=== PATIENT | male | born 1965 | race Caucasian/White ===

== ENCOUNTER 2022-09-21 12:16 | Inpatient (IN) | payer OTHER ==
[~2022-09-21] VITALS: Ht 172.7 cm; Wt 133.8 kg
[2022-09-21 12:18] VITALS: BP 112/79
--- NOTE | 2022-09-21 12:29 | NUR ---
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 ALSO COMPLAINS SWELLING AND REDNESS TO RIGHT EYE STARTED 3X DAYS AGO. PATIENT STATES HE SMOKES 1 PACK A DAY. DENIES ANY PMH.
--- NOTE | 2022-09-21 12:29 | NUR ---
ambulated patient to bed 10
[2022-09-21] MEDS ORDERED: KETOROLAC 30 MG/ML VIAL IVP ONE (12:55)
[2022-09-21] MEDS ORDERED: ALBUTEROL SULFATE/IPRATROPIU 3 ML SOL IH ONE (13:25)
[2022-09-21 13:52] LABS: BASOPHILS % (AUTO) 0.4 % (0.0-2.0); EOSINOPHILS # (AUTO) 0.4 K/uL (0-0.4); EOSINOPHILS % (AUTO) 3.3 % (0.0-4.0); HEMATOCRIT 43.9 % (36-52); HEMOGLOBIN 15.2 g/dL (12.0-18.0); LYMPHOCYTES # (AUTO) 2.2 K/uL (2.0-11.5); LYMPHOCYTES % (AUTO) 20.2 % (20.5-51.1); MEAN CORPUSCULAR HEMOGLOBIN 30 pg (27-31); MEAN CORPUSCULAR HGB CONC 35 g/dL (33-37); MEAN CORPUSCULAR VOLUME 88.1 fL (80-94); MONOCYTES # (AUTO) 1.4 K/uL (0.8-1.0); NEUTROPHILS # (AUTO) 6.8 K/uL (1.8-7.7); NEUTROPHILS % (AUTO) 63.1 % (42.2-75.2); PLATELET COUNT (AUTO) 227 K/uL (140-450); RED BLOOD CELL COUNT(AUTO) 4.98 MIL/uL (4.20-6.10); RED CELL DISTRIBUTION WIDTH 13.9 % (11.6-13.7); WHITE BLOOD COUNT (AUTO) 10.8 K/uL (4.8-10.8)
[2022-09-21 14:20] LABS: ALBUMIN 3.3 g/dL (3.4-5.0); ANION GAP 8.8 (8-16); CARBON DIOXIDE 31.5 mmol/L (21-32); CREATININE 0.9 mg/dL (0.6-1.3); POTASSIUM 4.3 mmol/L (3.5-5.1); TOTAL BILIRUBIN 1.7 mg/dL (0.0-1.0)
--- NOTE | 2022-09-21 15:10 | NUR ---
pt asleep, hard to rouse, "i feel very tired" alert x 4. Dr Carcamo aware
[2022-09-21] MEDS ORDERED: ONDANSETRON 4 MG/2 ML VIAL IVP PRN (15:40)
[2022-09-21] MEDS ORDERED: ACETAMINOPHEN 325 MG TAB PO PRN (15:40)
[2022-09-21] MEDS ORDERED: MAGNESIUM OXIDE 400 MG TAB PO PRN (15:40)
[2022-09-21] MEDS ORDERED: POTASSIUM CHLORIDE 10 MEQ TABER PO PRN (15:40)
[2022-09-21] MEDS ORDERED: HYDROcodone/APAP 5/325 MG 1 TAB TAB PO PRN (15:40)
[2022-09-21] MEDS ORDERED: MORPHINE SULFATE 2 MG/ML SYR IVP PRN (15:40)
--- NOTE | 2022-09-21 15:44 | NUR ---
tolerated supine position, NM tech aware, will be ready for VQ scan for pt after 3 hrs
[2022-09-21 16:00] VITALS: BP 130/79
--- NOTE | 2022-09-21 16:35 | NUR ---
Patient will be admitted to care of MD PURCELL. Admited to TELE. Will go to room 124A. Belongings list completed. Report to HUDSON NORWOOD.
--- NOTE | 2022-09-21 16:43 | NUR ---
RECEIVE PATIENT FROM ER OBSERVATION STATUS FOR CHEST PAIN, HYPOXIC, RESPIRATORY FAILURE D/O SOB W/ COUGH X 1 WEEK. PATIENT HAS NO SIGNIFICANT MEDICAL HX EXCEPT MAYBE SLEEPING APNEA PER FAMILY. PATIENT ALLERGY TO IODINE, FULL CODE, AMBULATORY, ALERT X 4, ON 5 LITER VIA MASK. PIV NOTED AT R. AC 20G, AND L. FOREARM 18G SALINE LOCK. VITAL WITHIN PATIENT'S BASELINE (T-P-R: 98.0-101-18, BP: 130/79, O2 SAT: 93% ON 5 LITER). VQ SCAN ENTRY LEVEL FINANCE PATIENT SHORTLY AFTER PATIENT ARRIVE UNIT. WILL CONTINUE TO MONITOR Addendum: 09/21/22 at 1935 by Юлия Francis RN ENDORSE PATIENT IN STABLE CONDITION TO PM SHIFT NURSE AFTER EXPLAIN TO PATIENT'S SIGNIFICANT OTHER THAT PATIENT WILL STAY IN HOSPITAL FOR BREATH TREATMENT OBSERVATION STATUS WHILE TREAT FOR FLUID OVERLOAD(?) WITH LASIX. PATIENT CURRENTLY ON 5 LITER VIA MASK
--- NOTE | 2022-09-21 19:30 | NUR ---
RECEIVED PT FROM AM NURSE FOR CONTINUITY OF CARE. PT IS STABLE
[2022-09-21 20:00] VITALS: BP 139/87
[2022-09-21] MEDS: ALBUTEROL SULFATE/IPRATROPIU 3 ML SOL IH SCH (22:21)
[2022-09-22] VITALS: BP 142/95
--- NOTE | 2022-09-22 01:00 | NUR ---
PATIENT ASLEEP,NO DISTRESS NOTED
[2022-09-22 04:00] VITALS: BP 122/80
[2022-09-22 06:36] LABS: ANION GAP 7.9 (8-16); CARBON DIOXIDE 33.5 mmol/L (21-32); CREATININE 0.7 mg/dL (0.6-1.3); POTASSIUM 4.4 mmol/L (3.5-5.1)
[2022-09-22 06:58] LABS: BASOPHILS % (AUTO) 0.4 % (0.0-2.0); EOSINOPHILS # (AUTO) 0.3 K/uL (0-0.4); EOSINOPHILS % (AUTO) 2.6 % (0.0-4.0); HEMOGLOBIN 15.8 g/dL (12.0-18.0); LYMPHOCYTES # (AUTO) 1.7 K/uL (2.0-11.5); LYMPHOCYTES % (AUTO) 15.1 % (20.5-51.1); MEAN CORPUSCULAR HEMOGLOBIN 30 pg (27-31); MEAN CORPUSCULAR HGB CONC 34 g/dL (33-37); MEAN CORPUSCULAR VOLUME 88.1 fL (80-94); MONOCYTES % (AUTO) 8.8 % (1.7-9.3); NEUTROPHILS # (AUTO) 8.2 K/uL (1.8-7.7); NEUTROPHILS % (AUTO) 73.1 % (42.2-75.2); PLATELET COUNT (AUTO) 224 K/uL (140-450); RED BLOOD CELL COUNT(AUTO) 5.23 MIL/uL (4.20-6.10); RED CELL DISTRIBUTION WIDTH 13.4 % (11.6-13.7); WHITE BLOOD COUNT (AUTO) 11.2 K/uL (4.8-10.8)
[2022-09-22] MEDS: ALBUTEROL SULFATE/IPRATROPIU 3 ML SOL IH SCH ×2 (07:17→23:28)
--- NOTE | 2022-09-22 07:30 | NUR ---
RECEIVED REPORT FROM DATABASE ADMINISTRATOR NURSE, POC DISCUSSED, PT CURRENTLY RESTING WITH CHEST RISING AND FALLING, NO ACUTE S/S OF DISTRESS, ALL SAFETY MEASURES IN PLACE, CALL LIGHT WITHIN REACH.
[2022-09-22 08:00] VITALS: BP 137/70
[2022-09-22] MEDS: DOCUSATE SODIUM 100 MG GELCAP PO SCH (09:00)
--- NOTE | 2022-09-22 09:09 | NUR ---
DC PLANNIN YRS OLD MALE PATIENT WAS ADMITTED FROM HOME WITH A DX OF CHEST PAIN , HYPOXIC RESP FAILURE. PATIENT HAS NO MEDICAL HISTORY.CXR AND CT CHEST NORMAL NO PE RAPID COVID TEST NEGATIVE. ADMINISTERED LASIX IV AND CONTINUED HOME MEDS. AWAITING FOR CONSULT ORDER AND DC PLAN TO RETURN HOME WHEN STABLE CM TO FOLLOW Addendum: 09/23/22 at 1358 by DANIA WEEMS CM RECEIVED ORDER FOR PATIENT TO RECEIVE A HOME BIPAP MACHINE. FAXED TO [facility]. Addendum: 09/23/22 at 1447 by DANIA WEEMS CM [facility] WILL BE DROPPING OF BIPAP MACHINE FROM [phone]. NURSE NOTIFIED. Addendum: 09/23/22 at 1628 by DANIA WEEMS CM [facility]#[id number] GIVEN BY MELISSA FROM [facility] FOR [facility].
--- NOTE | 2022-09-22 09:14 | NUR ---
PATIENT HAS BEEN SCREENED AND CATEGORIZED MODERATE NUTRITION RISK. PATIENT WILL BE SEEN WITHIN 3-5 DAYS OF ADMISSION. / REVIEWED BY SERGEI MAYO RD
[2022-09-22] MEDS: FUROSEMIDE 20 MG/2 ML VIAL IVP SCH (09:26)
--- NOTE | 2022-09-22 10:30 | NUR ---
PT STARTED ON BIPAP FOR INCREASED WOB AT THIS TIME. DR. PURCELL NOTIFIED.
--- NOTE | 2022-09-22 10:32 | NUR ---
DOTTIE DODD CALLED IN TO OBTAIN STATUS ON PT. GAVE HER AN UPDATE AND SHE HAD NO ADDITIONAL QUESTIONS OR CONCERNS.
[2022-09-22 12:00] VITALS: BP 118/67
[2022-09-22 16:00] VITALS: BP 111/70
--- NOTE | 2022-09-22 17:42 | NUR ---
PT IS RESTING WITH CHEST RISING AND FALLING. HE IS IN STABLE CONDITION WITH BIPAP. WHEN PT TAKES OFF BIPAP TO USE THE RESTROOM HIS O2 GOES DOWN TO THE 80'S. WE IMMEDIATELY PUT BACK ON BIPAP ONCE HE IS DONE WITH RESTROOM AND O2 GOES BACK UP TO MID 90'S.
--- NOTE | 2022-09-22 19:25 | NUR ---
RECEIVED PT FROM AM NURSE FOR CONTINUITY OF CARE. PT IS STABLE
[2022-09-22 20:00] VITALS: BP 121/73
[2022-09-23] VITALS: BP 128/83
--- NOTE | 2022-09-23 02:00 | NUR ---
PATIENT SLEEPING COMFORTABLY WITH BIPAP ON. NO DISTRESS NOTED
[2022-09-23 04:00] VITALS: BP 125/80
[2022-09-23 06:37] LABS: BASOPHILS % (AUTO) 0.4 % (0.0-2.0); EOSINOPHILS # (AUTO) 0.3 K/uL (0-0.4); EOSINOPHILS % (AUTO) 2.9 % (0.0-4.0); HEMATOCRIT 44.2 % (36-52); HEMOGLOBIN 15.3 g/dL (12.0-18.0); LYMPHOCYTES # (AUTO) 1.9 K/uL (2.0-11.5); LYMPHOCYTES % (AUTO) 18.2 % (20.5-51.1); MEAN CORPUSCULAR HEMOGLOBIN 30 pg (27-31); MEAN CORPUSCULAR HGB CONC 35 g/dL (33-37); MEAN CORPUSCULAR VOLUME 87.8 fL (80-94); NEUTROPHILS # (AUTO) 7.1 K/uL (1.8-7.7); NEUTROPHILS % (AUTO) 68.5 % (42.2-75.2); PLATELET COUNT (AUTO) 232 K/uL (140-450); RED BLOOD CELL COUNT(AUTO) 5.03 MIL/uL (4.20-6.10); RED CELL DISTRIBUTION WIDTH 13.6 % (11.6-13.7); WHITE BLOOD COUNT (AUTO) 10.4 K/uL (4.8-10.8)
--- NOTE | 2022-09-23 07:15 | NUR ---
RECEIVED BEDSIDE REPORT FROM NIGHT NURSE LON FOR CONTINUITY OF CARE. INITIAL ASSESSMENT DONE. ALERT AND ORIENTED X 4. RESP. EVEN AND UNLABORED. ON 15L/OXYMIZER. SATTING 88%-90%. PER LON PT REFUSED BIPAP, CALLED RT MADE AWARE. IV SITE INTACT, ON SALINE LOCK. NOT IN ANY DISTRESS NOTED. CALL LIGHT KEPT WITHIN REACH. WILL CONTINUE TO MONITOR.
--- NOTE | 2022-09-23 07:21 | NUR ---
ENDORSED PT TO AM NURSE FOR CONTINUITY OF CARE. PT IS STABLE
[2022-09-23 08:00] VITALS: BP 105/54
[2022-09-23] MEDS: DOCUSATE SODIUM 100 MG GELCAP PO SCH (08:09)
--- NOTE | 2022-09-23 08:09 | NUR ---
SCHEDULED MEDICATIONS GIVEN. TOLERATED WELL.
--- NOTE | 2022-09-23 08:10 | NUR ---
PRN MAG OXIDE PO WAS GIVEN. FOR MAGNESIUM 1.7. TOLERATED WELL.
[2022-09-23] MEDS: FUROSEMIDE 20 MG/2 ML VIAL IVP SCH (09:00)
[2022-09-23 09:34] LABS: CARBON DIOXIDE 34.2 mmol/L (21-32); CREATININE 0.8 mg/dL (0.6-1.3); POTASSIUM 4.2 mmol/L (3.5-5.1)
--- NOTE | 2022-09-23 10:19 | NUR ---
LASIX IVP GIVEN BY DON NORWOOD. TOLERATED WELL.
[2022-09-23] MEDS: ALBUTEROL SULFATE/IPRATROPIU 3 ML SOL IH SCH ×3 (11:06→19:15)
[2022-09-23 12:00] VITALS: BP 124/68
--- NOTE | 2022-09-23 12:05 | NUR ---
SEEN BY DR. PURCELL.
--- NOTE | 2022-09-23 14:13 | NUR ---
09/23/22 RD INITIAL ASSESSMENT COMPLETED PLEASE REFER TO NUTRITION ASSESSMENT UNDER CARE ACTIVITY FOR ESTIMATED NUTRITIONAL NEEDS. 1. CONTINUE CARDIAC DIET TOLERATED 2. PROVIDED NUTRITION EDUCATION AND HANDOUTS ON GENERAL HEALTHY EATING HABITS 3. RD TO FOLLOW-UP 7 DAYS, LOW RISK REVIEWED BY SERGEI MAYO RD
--- NOTE | 2022-09-23 15:15 | NUR ---
CHECKED ON PT LET HIM KNOW IT WAS RAJESH FOR HIS TX. HE STATED WE WANTS TO SLEEP AND HE DIDNT WANT ONE AT THIS TIME. EXPLAINED TO PT IF HE GETS SOB TO CALL AND WE WILL COME CHECK ON HIM. WILL CONTINUE TO MONITOR. NO DISTRESS NOTED. PT WAS TITRATED TO 10L OXYMIZER. SPO2 96% HR 101
--- NOTE | 2022-09-23 15:17 | NUR ---
DC PLANNING ASSESSMENT COMPLETE PLEASE REFER TO ASSESSMENT FOR ADDITIONAL DETAILS PT REPORTS DC PLAN TO RETURN HOME WITH GF PROVIDING TRANSPORTATION, WHEN MEDICALLY CLEARED BY PHYSICIAN. PT CURRENTLY WAITING ON HOME BIPAP MACHINE, DC SEGMENTAL PAVING SUPERVISOR CURRENTLY WORKING ON OBTAINING BIPAP MACHINE FOR PT WITH [employer] AND [employer]. Addendum: 09/23/22 at 1518 by Enrico Ocampo SS Amended: Links added.
[2022-09-23 16:00] VITALS: BP 106/68
--- NOTE | 2022-09-23 16:10 | NUR ---
RECEIVED HOME BIPAP.
--- NOTE | 2022-09-23 19:30 | NUR ---
BEDSIDE REPORT GIVEN TO NIGHT NURSE JESSE. REMAINS STABLE.
[2022-09-23 20:00] VITALS: BP 121/60
--- NOTE | 2022-09-23 22:04 | NUR ---
V FIB ON TELE MONITOR - ASSESS THE PT - DENIES PAIN - HE SAID SOMETIMES WHILE HE IS SLEEPING HE JUST AWAKEN UP BECAUSE OF SHORTNESS OF BREATH - WILL INFOPRM RT TO JEANETTE PT ON BI PAP . Addendum: 09/23/22 at 2335 by Zara Ledbetter RN THE ABOVE NURSE'S NOTE IS A TIME ERROR ENTRY , INSTEAD OF 2303 - [id number] . Addendum: 09/24/22 at 0017 by Zara Ledbetter RN at 2304 - informed dr. mauro pt had episode of v fib on tele monitor - per dr. zunilda hopkins pt on bi pap while sleeping - will carry out .
--- NOTE | 2022-09-23 23:06 | NUR ---
called to bedside. patient spo2 monitor showed 88%. patient had clear breath sounds, no work of breathing, no cyanosis. adjusted pulse ox probe and spo2 quickly returned to 94%. changed out patients pulse ox preventively and observed patient for several minutes that spo2 maintained at 94% with no work of breathing. will continue to monitor.
--- NOTE | 2022-09-23 23:20 | NUR ---
INFORM RT HOOK PT ON BI PAP WHILE PT SLEEPING - RT VERBALIZES UNDERSTANDING .
--- NOTE | 2022-09-23 23:44 | NUR ---
PT PLACED ON BIPAP 04/06 65%/. PT TOLERATING WELL. VITALS: 94% 113H. WILL MONITOR THROUGHOUT REMAINDER OF SHIFT.
[2022-09-24] VITALS: BP 110/62
--- NOTE | 2022-09-24 02:51 | NUR ---
RN CALLED STATING PATIENT DID NOT WANT TO BE ON BIPAP. TOOK BIPAP OFF PATIENT AND PLACED ON OXIMYZER @15L. PATIENT VITALS CURRENTLY STABLE 94% 113h. NO S/S OF RD NOTED. PT WENT BACK TO SLEEP.
[2022-09-24 04:00] VITALS: BP 110/62
--- NOTE | 2022-09-24 04:00 | NUR ---
SLEEPING , EASILY AROUSABLE , O2 SAT WNL , NO COMPLAIN MADE , WILL CONT. TO MONITOR
[2022-09-24 05:51] LABS: BASOPHILS % (AUTO) 0.3 % (0.0-2.0); EOSINOPHILS # (AUTO) 0.4 K/uL (0-0.4); EOSINOPHILS % (AUTO) 3.5 % (0.0-4.0); HEMATOCRIT 45.2 % (36-52); HEMOGLOBIN 15.7 g/dL (12.0-18.0); LYMPHOCYTES # (AUTO) 1.5 K/uL (2.0-11.5); LYMPHOCYTES % (AUTO) 14.6 % (20.5-51.1); MEAN CORPUSCULAR HEMOGLOBIN 30 pg (27-31); MEAN CORPUSCULAR HGB CONC 35 g/dL (33-37); MEAN CORPUSCULAR VOLUME 87.7 fL (80-94); MONOCYTES % (AUTO) 10.1 % (1.7-9.3); NEUTROPHILS # (AUTO) 7.3 K/uL (1.8-7.7); NEUTROPHILS % (AUTO) 71.5 % (42.2-75.2); PLATELET COUNT (AUTO) 213 K/uL (140-450); RED BLOOD CELL COUNT(AUTO) 5.16 MIL/uL (4.20-6.10); RED CELL DISTRIBUTION WIDTH 13.3 % (11.6-13.7); WHITE BLOOD COUNT (AUTO) 10.3 K/uL (4.8-10.8)
[2022-09-24 05:56] LABS: ANION GAP 7.8 (8-16); CARBON DIOXIDE 37.4 mmol/L (21-32); CREATININE 0.8 mg/dL (0.6-1.3); POTASSIUM 4.2 mmol/L (3.5-5.1)
--- NOTE | 2022-09-24 06:00 | NUR ---
AWAKE , O2 SAT WNL , NO COMPLAIN MADE . CALL LIGHT WITHIN REACH . WILL CONT. TO MONITOR
[2022-09-24] MEDS: ALBUTEROL SULFATE/IPRATROPIU 3 ML SOL IH SCH ×3 (07:00→14:44)
--- NOTE | 2022-09-24 07:20 | NUR ---
RECEIVED BEDSIDE REPORT FROM NIGHT NURSE JESSE FOR CONTINUITY OF CARE. INITIAL ASSESSMENT DONE. ALERT AND ORIENTED X 4. RESP. EVEN AND UNLABORED. ON 15L/OXIMIZER. SATTING 91-93%. IV SITE INTACT, ON SALINE LOCK. NO C/O PAIN OR DISCOMFORT. CALL LIGHT KEPT WITHIN REACH. WILL CONTINUE TO MONITOR
--- NOTE | 2022-09-24 07:35 | NUR ---
ENDORSED , AWAKE , O2 SAT WNL .
[2022-09-24 08:00] VITALS: BP 101/68
--- NOTE | 2022-09-24 08:00 | NUR ---
Patient's Plan of Care was discussed and reviewed with ELECTRONIC COILS SUPERVISOR: SAMIA
[2022-09-24] MEDS: FUROSEMIDE 20 MG/2 ML VIAL IVP SCH (09:00)
[2022-09-24] MEDS: DOCUSATE SODIUM 100 MG GELCAP PO SCH (10:00)
--- NOTE | 2022-09-24 10:00 | NUR ---
SCHEDULED MEDICATIONS GIVEN. TOLERATED WELL.
[2022-09-24 12:00] VITALS: BP 98/77
--- NOTE | 2022-09-24 12:20 | NUR ---
REQUEST FOR SERVICE: HOME O2 EVALUATION PATIENT FOUND ON ROOM AIR SATING 87%. ASKED PATIENT TO STAND AND TAKE A FEW STEPS, AFTER PATIENT STOOD UP FOR A FEW MINUTES, PATIENT SATURATION DROPPED TO 82%. PLACED PATIENT ON 2L AND SATURATION WENT UP TO 92%. PATIENT SAT BACK BACK DOWN AND SATURATION WENT UP TO 94%. PATIENT WAS IN NO SIGNS OF RESPIRATORY DISTRESS. WILL CONTINUE TO MONITOR.
[2022-09-24 16:00] VITALS: BP 106/68
--- NOTE | 2022-09-24 16:10 | NUR ---
CALLED TO EVALUATE PATIENT BY RN AFTER PATIENT WALKED AROUND WHILE ON ROOM AIR. PATIENT SATURATION ON ROOM AIR WAS 92%. PATIENT STATED HE DID NOT FEEL SHORT OF BREATH. PATIENT SHOWED NO SIGNS OF RESPIRATORY DISTRESS.
--- NOTE | 2022-09-24 16:17 | NUR ---
INFORMED BY PT THAT HE WANTS TO GO HOME. CHECKED O2 SATTING AT 91% RA. CALLED RT REEVALUATE. SATTING AT 92% RA. DR. PURCELL NOTIFIED, PT IS CLEARED FOR DISCHARGE.
[2022-09-24] MEDS ORDERED: FURO-572 PO (16:37)
[2022-09-24] MEDS ORDERED: POTA10TA70 PO (16:38)
[2022-09-24] MEDS ORDERED: BUDE1AER IH (16:38)
--- NOTE | 2022-09-24 17:00 | NUR ---
PT LEFT HOSPITAL. DISCHARGE TO HOME. TRANSPORTED VIA PRIVATE VEHICLE. ACCOMPANIED BY HIS FRIEND. ALERT AND ORIENTED X 4. RESP. EVEN AND UNLABORED. ID BAND AND IV REMOVED. DISCHARGED PAPERWORKS SIGNED AND DISCUSS BY PT. NO C/O PAIN OR DISCOMFORT. REMAINS STABLE.
== END 2022-09-24 17:00 | disposition home or self-care (01) | DRG 140 ==
LOC: MED 12:16 → OBSVTOIN 15:40 → MTU 15:40
PROVIDERS: ADMIT Student in an Organized Health Care Education/Training Program; ATTEND Student in an Organized Health Care Education/Training Program
PROC: 5A09357 Assistance with Respiratory Ventilation, Less than 24 Consecutive Hours, Continuous Positive Airway Pressure (ICD-10-PCS; principal; 2022-09-22)
PROC: 5A09357 Assistance with Respiratory Ventilation, Less than 24 Consecutive Hours, Continuous Positive Airway Pressure (ICD-10-PCS; 2022-09-23)
PROC: 5A09357 Assistance with Respiratory Ventilation, Less than 24 Consecutive Hours, Continuous Positive Airway Pressure (ICD-10-PCS; 2022-09-24)
DX: J44.9 Chronic obstructive pulmonary disease, unspecified (principal); J96.01 Acute respiratory failure with hypoxia; R64 Cachexia; J96.02 Acute respiratory failure with hypercapnia; E44.1 Mild protein-calorie malnutrition; E66.2 Morbid (severe) obesity with alveolar hypoventilation; R65.10 Systemic inflammatory response syndrome (SIRS) of non-infectious origin without acute organ dysfunction; J44.1 Chronic obstructive pulmonary disease with (acute) exacerbation; Z68.41 Body mass index [BMI] 40.0-44.9, adult; G89.29 Other chronic pain; M54.9 Dorsalgia, unspecified; Z20.822 Contact with and (suspected) exposure to COVID-19; F17.210 Nicotine dependence, cigarettes, uncomplicated; Z91.041 Radiographic dye allergy status
CPT/HCPCS: 36415; 36600; 71045; 71250; 78582; 80048; 80053; 82803; 83605; 83735; 83880; 84484; 85025; 85379; 85610; 85730; 87040; 87081; 93005; 94640; 94660; 96374; 99291; J1885; J1940; Q0092